=== PATIENT | female | born 1945 | race Caucasian/White ===

== ENCOUNTER → 2022-03-13 | Outpatient (CLI) | payer BC, MEDICARE ==
--- NOTE | 2022-03-13 14:16 | Diagnostic Imaging Report ---
INDICATION: Right knee pain. COMPARISON: None. FINDINGS: Multiple radiographic views of the right knee were obtained. There is no acute fracture or dislocation. Osseous structures are intact. There are advanced tricompartmental osteoarthritic changes. This consists of joint space narrowing with prominent osteophyte formations. This appears greatest involving the patellar trochlear compartment. Joint spaces are otherwise maintained. No large joint effusion is seen. No unexpected radiopaque foreign bodies are seen. IMPRESSION: 1. No acute fracture or dislocation of the right knee. 2. Advanced tricompartmental osteoarthritic changes. Dictated by: Dictated on workstation # [id number]
== END ==
LOC: ORTHO 13:01
PROVIDERS: ATTEND Orthopaedic Surgery
DX: M17.11 Unilateral primary osteoarthritis, right knee (principal)
CPT/HCPCS: 20610; 73564

== ENCOUNTER → 2022-07-21 | Outpatient (CLI) | payer MEDICARE | LOC: ORTHO 11:00 | PROVIDERS: ATTEND Orthopaedic Surgery | DX: M17.11 Unilateral primary osteoarthritis, right knee (principal) | CPT/HCPCS: 20610 ==

== ENCOUNTER 2022-07-22 11:09 | Emergency (ER) | payer MEDICARE ==
--- NOTE | 2022-07-22 11:51 | ED General ---
General Chief Complaint: Dizziness/Syncope Stated Complaint: DIZZY/BLURRY VISION Source of Information: Patient Exam Limitations: No Limitations History of Present Illness Date Seen by Provider: Jul 22, 2022 Time Seen by Provider: 11:25 Initial Comments Patient is a 76-year-old female who presents to the emergency department for evaluation after an episode of feeling like she was about to pass out. Patient states she was in her car heading to an appointment when this happened. Patient kept the appointment and afterwards presented here for further evaluation. Patient denies any symptomology at the time of my exam. She states she remembers the episode today but does remember feeling very lightheaded. She states she had a similar episode on Thursday that she does not remember. Both of these episodes were witnessed by her friend and her friend states that there was no shaking. Patient returned to her self very shortly after the episodes resolved. Patient denies any history of similar episodes. She states she has not had any chest pain, shortness of air, dependent edema, focal neurologic symptoms. No new medications. States she has been eating and drinking normally. Allergies and Home Medications Allergies Coded Allergies: acetaminophen (Verified Allergy, Unknown, 07/22/22) propoxyphene (Verified Allergy, Unknown, 07/22/22) Patient Home Medication List Home Medication List Reviewed: Yes Review of Systems Review of Systems Constitutional: see HPI EENTM: no symptoms reported Respiratory: no symptoms reported Cardiovascular: no symptoms reported Musculoskeletal: no symptoms reported Skin: no symptoms reported Physical Exam Vital Signs Vital Signs - First Documented 07/22/22 07/22/22 11:20 13:28 Temp 36.0 Pulse 68 Resp 18 B/P (MAP) 113/32 (59) Pulse Ox 99 O2 Delivery Room Air Capillary Refill : Height, Weight, BMI Height: '" Weight: lbs. oz. kg; BMI Method: General Appearance: No Apparent Distress, WD/WN HEENT: PERRL/EOMI, TMs Normal, Normal ENT Inspection, Pharynx Normal Neck: Full Range of Motion, Normal Inspection, Non Tender, Supple Respiratory: Chest Non Tender, Lungs Clear, Normal Breath Sounds Cardiovascular: Regular Rate, Rhythm Gastrointestinal: Normal Bowel Sounds, Soft Extremity: Normal Capillary Refill, Normal Inspection Neurologic/Psychiatric: Alert, Oriented x3, No Motor/Sensory Deficits, Normal Mood/Affect Skin: Normal Color, Warm/Dry Progress/Results/Core Measures Suspected Sepsis SIRS Temperature: Pulse: Respiratory Rate: Laboratory Tests 07/22/22 11:55: White Blood Count 10.4 Blood Pressure / Mean: Laboratory Tests 07/22/22 11:55: Creatinine 1.55H, Platelet Count 286, Total Bilirubin 0.3 Results/Orders Lab Results Laboratory Tests Test 07/22/22 11:55 Range/Units White Blood Count 10.4 4.3-11.0 10^3/uL Red Blood Count 3.82 3.80-5.11 10^6/uL Hemoglobin 10.4 L 11.5-16.0 g/dL Hematocrit 33 L 35-52 % Mean Corpuscular Volume 87 80-99 fL Mean Corpuscular Hemoglobin 27 25-34 pg Mean Corpuscular Hemoglobin Concent 31 L 32-36 g/dL Red Cell Distribution Width 14.3 10.0-14.5 % Platelet Count 286 130-400 10^3/uL Mean Platelet Volume 10.1 9.0-12.2 fL Immature Granulocyte % (Auto) 1 % Neutrophils (%) (Auto) 68 42-75 % Lymphocytes (%) (Auto) 20 12-44 % Monocytes (%) (Auto) 8 0-12 % Eosinophils (%) (Auto) 3 0-10 % Basophils (%) (Auto) 1 0-10 % Neutrophils # (Auto) 7.1 1.8-7.8 10^3/uL Lymphocytes # (Auto) 2.1 1.0-4.0 10^3/uL Monocytes # (Auto) 0.8 0.0-1.0 10^3/uL Eosinophils # (Auto) 0.3 0.0-0.3 10^3/uL Basophils # (Auto) 0.1 0.0-0.1 10^3/uL Immature Granulocyte # (Auto) 0.1 0.0-0.1 10^3/uL Neutrophils % (Manual) 70 % Lymphocytes % (Manual) 17 % Monocytes % (Manual) 8 % Eosinophils % (Manual) 3 % Basophils % (Manual) 2 % Band Neutrophils 0 % Blood Morphology Comment NORMAL Sodium Level 139 135-145 MMOL/L Potassium Level 4.8 3.6-5.0 MMOL/L Chloride Level 111 H 98-107 MMOL/L Carbon Dioxide Level 17 L 21-32 MMOL/L Anion Gap 11 5-14 MMOL/L Blood Urea Nitrogen 35 H 7-18 MG/DL Creatinine 1.55 H 0.60-1.30 MG/DL Estimat Glomerular Filtration Rate 35 BUN/Creatinine Ratio 23 Glucose Level 139 H 70-105 MG/DL Calcium Level 9.3 8.5-10.1 MG/DL Corrected Calcium 9.7 8.5-10.1 MG/DL Total Bilirubin 0.3 0.1-1.0 MG/DL Aspartate Amino Transf (AST/SGOT) 15 5-34 U/L Alanine Aminotransferase (ALT/SGPT) 18 0-55 U/L Alkaline Phosphatase 61 40-136 U/L Troponin I 0.034 H <0.028 NG/ML B-Type Natriuretic Peptide 29.6 <100.0 PG/ML Total Protein 6.9 6.4-8.2 GM/DL Albumin 3.5 3.2-4.5 GM/DL My Orders Orders - LILLIAM DUNN [employer] Cbc And Manual Diff (07/22/22 11:35) Iv/Invasive Line Insertion .IV INSERT (07/22/22 11:35) Ekg Tracing (07/22/22 11:35) Chest 1 View, Ap/Pa Only (07/22/22 11:35) Bnp [place] (07/22/22 11:35) Urinalysis (07/22/22 11:35) Comprehensive Metabolic Panel (07/22/22 11:55) Troponin I [place] (07/22/22 11:55) Vital Signs/I&O 07/22/22 07/22/22 11:20 13:28 Temp 36.0 37.0 Pulse 68 90 Resp 18 16 B/P (MAP) 113/32 (59) 119/77 Pulse Ox 99 O2 Delivery Room Air Capillary Refill : Progress Note : Progress Note Patient is nontoxic and well-hydrated on exam. No adventitious lung sounds or obstructive breathing noted on exam. Vital signs reassuring. Laboratory evaluations largely unremarkable. Patient does have a very mildly elevated troponin as well as some renal insufficiency. She states her renal insufficiency is something she knows about she states her diabetes doctor stating that her kidney function is declining. She denies any known history of elevation in her troponin. She states she is completely asymptomatic. EKG shows no acute ischemic change or arrhythmia. I offered admission for further evaluation and serial troponins but she declined stating she wished to go home and follow-up as scheduled with her PCP tomorrow. Will discharge home with recommendations for follow-up with PCP tomorrow. Strict return precautions for urgent symptomology discussed. Patient verbalized understanding. ECG EKG : EKG Time: 11:45 Rate: 65 Rhythm: Normal Sinus ECG Comparisson: No Previous ECG Available ECG Impression: 1st Degree AV Block Comment RBBB Departure Impression Primary Impression: Syncope Qualified Codes: R55 - Syncope and collapse Additional Impression: Renal insufficiency Disposition: 01 HOME, SELF-CARE Condition: Stable Departure-Patient Inst. Decision time for Depature: 13:15 Patient Instructions: Syncope (Fainting) (DC) Add. Discharge Instructions: Follow-up with your primary care physician tomorrow as you have scheduled. Please return to the emergency department with any chest pain, weakness/numbness in one side of your face/body, shortness of breath, or any other concerning symptoms. You have been given a copy of all of our lab findings here today to give to your primary care physician at your appointment tomorrow. All discharge instructions reviewed with patient and/or family. Voiced understanding. LILLIAM UDNN [employer] TE[employer] Jul 22, 2022 11:51
[2022-07-22 11:59] LABS: BASOPHILS # (AUTO) 0.1 10^3/uL (0.0-0.1); BASOPHILS % (AUTO) 1 % (0-10); EOSINOPHILS # (AUTO) 0.3 10^3/uL (0.0-0.3); EOSINOPHILS % (AUTO) 3 % (0-10); HEMATOCRIT 33 % (35-52); HEMOGLOBIN 10.4 g/dL (11.5-16.0); LYMPHOCYTES # (AUTO) 2.1 10^3/uL (1.0-4.0); LYMPHOCYTES % (AUTO) 20 % (12-44); MEAN CORPUSCULAR HEMOGLOBIN 27 pg (25-34); MEAN CORPUSCULAR HGB CONC 31 g/dL (32-36); MEAN CORPUSCULAR VOLUME 87 fL (80-99); MEAN PLATELET VOLUME 10.1 fL (9.0-12.2); MONOCYTES # (AUTO) 0.8 10^3/uL (0.0-1.0); MONOCYTES % (AUTO) 8 % (0-12); NEUTROPHILS # (AUTO) 7.1 10^3/uL (1.8-7.8); NEUTROPHILS % (AUTO) 68 % (42-75); PLATELET COUNT 286 10^3/uL (130-400); WHITE BLOOD COUNT 10.4 10^3/uL (4.3-11.0)
--- NOTE | 2022-07-22 12:05 | Diagnostic Imaging Report ---
INDICATION: Near syncope. No priors. FINDINGS: The lungs are clear. There is mild elevation of the right diaphragm. Heart size and pulmonary vascularity within normal limits. IMPRESSION: No acute appearing abnormality. Dictated by: Dictated on workstation # [id number]
[2022-07-22 12:23] LABS: BAND NEUTROPHILS 0 %; LYMPHOCYTES % (MANUAL) 17 %; NEUTROPHILS % (MANUAL) 70 %
[2022-07-22 12:24] LABS: BASOPHILS % (MANUAL) 2 %; EOSINOPHILS % (MANUAL) 3 %; MONOCYTES % (MANUAL) 8 %; RBC MORPH NORMAL
[2022-07-22 12:50] LABS: ALBUMIN 3.5 GM/DL (3.2-4.5); BILIRUBIN,TOTAL 0.3 MG/DL (0.1-1.0); CALCIUM 9.3 MG/DL (8.5-10.1); CREATININE SERUM 1.55 MG/DL (0.60-1.30); POTASSIUM 4.8 MMOL/L (3.6-5.0); TOTAL PROTEIN 6.9 GM/DL (6.4-8.2)
[2022-07-22 13:28] VITALS: BP 119/77
== END 2022-07-22 13:32 | disposition home or self-care (01) ==
LOC: EDUNIT# 11:09 → ER 11:11
DX: R55 Syncope and collapse (principal); N28.9 Disorder of kidney and ureter, unspecified; R77.8 Other specified abnormalities of plasma proteins
CPT/HCPCS: 36415; 71045; 80053; 83880; 84484; 85007; 85027; 93005

== ENCOUNTER → 2023-08-20 | Outpatient (CLI) | payer MEDICARE | LOC: ORTHO 10:24 | PROVIDERS: ATTEND Orthopaedic Surgery | DX: M25.562 Pain in left knee (principal); Z96.652 Presence of left artificial knee joint | CPT/HCPCS: 99213 ==